=== PATIENT | male | born 1940 | race Caucasian/White ===

== ENCOUNTER 2022-09-26 12:20 | Emergency (ER) | payer MEDICARE, BC ==
[2022-09-26] MEDS ORDERED: Witch Hazel Medicated Pads 100/Jar TOP PRN (13:51)
[2022-09-26] MEDS ORDERED: Lidocaine 5% Oint 35.44 GM Tube TOP ONE (13:52)
== END 2022-09-26 14:12 | disposition home or self-care (01) ==
LOC: DL.ED 12:20
DX: K64.4 Residual hemorrhoidal skin tags (principal); Z87.891 Personal history of nicotine dependence; Z88.2 Allergy status to sulfonamides
CPT/HCPCS: 99282; A9270-GY